=== PATIENT | female | born 1950 | race Caucasian/White ===

== ENCOUNTER 2019-12-24 01:27 | Outpatient (CLI) | payer MEDICARE, SELFPAY ==
[2019-12-24 20:05] LABS: SARS-CoV-2 RNA PCR Negative
== END 2019-12-24 01:28 | disposition home or self-care (01) ==
LOC: ANHCOVIDDT 01:28
PROVIDERS: PCP Internal Medicine; Visit Provider Internal Medicine Gastroenterology
DX: Z01.812 Encounter for preprocedural laboratory examination (principal); Z11.59 Encounter for screening for other viral diseases
CPT/HCPCS: 87635; C9803; U0003

== ENCOUNTER 2019-12-27 01:15 | Day surgery (SDC) | payer MEDICARE, SELFPAY ==
[2019-12-23 11:59] VITALS: BMI 22.8
[2019-12-27 09:26] VITALS: BP 154/52; PULSE 96; RESP 20; TEMP 37.5; O2SAT 98
--- NOTE | 2019-12-27 09:26 | WPDANESEPPF ---
Anes - Initial Pre Proc Eval Procedure: Operation Date: 12/27/19 10:30 Proposed Procedures p Esophagogastroduodenoscopy - Perry Haji MD Date/Time: 12/27/19 09:26 Surgeon: Perry Haji MD Pre Op Diagnosis: GI Bleed Patient Data Age: 69 Gender: F Height: 1.52 m Weight: 53 kg Allergies Allergy/AdvReac Type Severity Reaction Status Date / Time codeine Allergy Intermediate Unknown Verified 12/27/19 09:27 Sulfa (Sulfonamide Allergy Intermediate Rash Verified 12/27/19 09:27 Antibiotics) Home Medications Medication Instructions Recorded Confirmed Type alprazolam [Xanax] 0.25 mg PO TID PRN 12/23/19 12/23/19 History carvedilol 3.125 mg PO BID 12/23/19 12/23/19 History ferrous sulfate 325 mg PO BID 12/23/19 12/23/19 History pantoprazole 40 mg PO HS 12/23/19 12/23/19 History Patient hx anesthesia problems: none Family hx anesthesia problems: none [facility] Past Medical History Medical History (Updated 12/27/19 @ 09:28 by Corey Carrington MD) Anxiety Arthritis Gastroesophageal reflux disease HTN (hypertension) Anes - Eval Final PreProcedure Day of Procedure 12/27/19 09:26 Patient weight: normal Heart: regular rate and rhythm Lungs: clear to auscultation and normal air movement Airway: Mallampati scale class II Neurological: alert and oriented Last oral intake: >/= 8 hours ASA classification: II Emergent: no Anesthetic plan: proceed Anesthesia type and monitoring: general GIVS Informed Consent: The patient's anesthetic plan and its attendant risks and benefits were discussed with the patient/family/POA. Questions were solicited and answers provided to the satisfaction of the patient/family/POA.
--- NOTE | 2019-12-27 09:50 | WPDGICN ---
Assessment and Plan Assessment and plan (1) Anemia: Code(s): D64.9 - Anemia, unspecified Status: Acute Assessment and Plan: Anemia is noted on recent lab work. This is new from a normal blood count in the fall of 2019. There is some concern over possible GI bleeding. Patient has had required rather significant doses of nonsteroidal anti-inflammatory agents recently. No obvious bleeding site has been described. Plan is to evaluate with an EGD initially a colonoscopy subsequently if this is not fruitful. Agree with the empiric trial of Protonix. Limit use of nonsteroidals as much as possible until this is evaluated. Iron studies will be obtained as well as stool Hemoccult. (2) Arthritis: Code(s): M19.90 - Unspecified osteoarthritis, unspecified site Status: Acute Assessment and Plan: Patient has significant arthritis. She requests re- implementation of nonsteroidal anti-inflammatory agents if ulcer disease can be controlled (3) Anxiety: Code(s): F41.9 - Anxiety disorder, unspecified Status: Acute GI Consult Note Consult date/time: 12/27/19 09:50 HPI: Sally Morales is a 69 year old female seen in evaluation at the request of Dr Olaf Dolan. Patient has a long history of diagnosis of rheumatoid arthritis over the last few years. She has had increasing joint pain over the last several months. She has been treated with nonsteroidal anti-inflammatory agents. She was hospitalized at [facility] approximately a week ago was found to have rather significant anemia. Patient is reported to have had a normal hemoglobin in the fall of 2018. Recent hospitalization hemoglobin had declined to approximately 8.7. Patient denies any obvious signs of GI blood loss. She denies any recent stool samples to diagnose bleeding. She denies any other source of anemia or bleeding. She has had no nose bleeds. She has had no blood in her urine. She has had no excessive bruising. She denies abdominal pain. Her bowel habits are reported to be normal. They have not been black. There has been no obvious blood in her stools. Over the last 1-2 weeks. Nonsteroidal anti-inflammatory agents have been held. She has relied on Tylenol for pain medications. She was started on iron and Protonix. As well as Alprazolam. Patient presents today for EGD to exclude upper GI source of blood loss. And /or anemia. Review of Systems Review of Systems: All systems reviewed & are unremarkable except as noted in HPI and below PMFSH Past Medical History Medical History Anxiety Arthritis Gastroesophageal reflux disease HTN (hypertension) Meds Home Medications and Allergies Home Medications Medication Instructions Recorded Confirmed Type alprazolam [Xanax] 0.25 mg PO TID PRN 12/23/19 12/27/19 History carvedilol 3.125 mg PO BID 12/23/19 12/27/19 History ferrous sulfate 325 mg PO BID 12/23/19 12/23/19 History pantoprazole 40 mg PO HS 12/23/19 12/23/19 History Allergies Allergy/AdvReac Type Severity Reaction Status Date / Time codeine Allergy Intermediate Unknown Verified 12/27/19 09:27 Sulfa (Sulfonamide Allergy Intermediate Rash Verified 12/27/19 09:27 Antibiotics) Vital Signs Vital Signs - 24 hr 12/27/19 09:26 Temperature 99.5 F Pulse Rate 96 Respiratory Rate 20 Blood Pressure 154/52 H Pulse Oximetry 98 Exam Narrative: Exam Narrative: Physical exam reveals patient to be alert. Vital signs are stable. HEENT exam unremarkable. Lungs are clear to auscultation and percussion. Heart is without murmur or extra sounds. Abdominal exam bowel sounds are present soft nontender with no hepatosplenomegaly. Digital external rectal exam unremarkable no stools obtained for exam.
[2019-12-27] MEDS: LACTATED RINGERS 1,000 ML 150 ML IV CONT (09:52)
[2019-12-27] MEDS: KETOROLAC 15 MG/ML VIAL (*BKC) IV PUSH (10:05)
[2019-12-27] MEDS: BENZOCAINE (*SP) 60 ML SPRAY CAN (HURRICAINE) 1 SPRAY MUCOUS MEM (10:41)
[2019-12-27 10:49] VITALS: BP 114/90; PULSE 97; RESP 25; O2SAT 95
[2019-12-27 10:59] VITALS: BP 131/91; PULSE 88; RESP 24; O2SAT 100
[2019-12-27 11:09] VITALS: BP 145/57; PULSE 81; RESP 21; O2SAT 99
[2019-12-27 11:50] LABS: Iron 17 ug/dL (37-170)
[2019-12-27 12:02] LABS: Percent Iron Saturation 5 % (20-50)
== END 2019-12-27 11:48 | disposition home or self-care (01) ==
PROVIDERS: PCP Internal Medicine; Visit Provider Internal Medicine Gastroenterology
PROC: 0DJ08ZZ Inspection of Upper Intestinal Tract, Via Natural or Artificial Opening Endoscopic (ICD-10-PCS; CPT 43235; principal; 2019-12-27 10:30)
DX: D64.9 Anemia, unspecified (principal); K44.9 Diaphragmatic hernia without obstruction or gangrene; K21.9 Gastro-esophageal reflux disease without esophagitis; M19.90 Unspecified osteoarthritis, unspecified site; F41.9 Anxiety disorder, unspecified; M06.9 Rheumatoid arthritis, unspecified; I10 Essential (primary) hypertension
CPT/HCPCS: 43235; 36415; 82728; 83540; 83550; J1885; J2704; J7120

== ENCOUNTER 2020-01-07 02:32 | Outpatient (CLI) | payer MEDICARE, SELFPAY ==
[2020-01-07 18:57] LABS: SARS-CoV-2 RNA PCR Negative
== END 2020-01-07 02:33 | disposition home or self-care (01) ==
LOC: ANHCOVIDDT 02:32
PROVIDERS: PCP Internal Medicine; Visit Provider Internal Medicine Gastroenterology
DX: Z01.812 Encounter for preprocedural laboratory examination (principal); Z11.59 Encounter for screening for other viral diseases
CPT/HCPCS: 87635; C9803; U0003

== ENCOUNTER 2020-01-10 00:45 | Day surgery (SDC) | payer MEDICARE, SELFPAY ==
[2019-12-31 15:34] VITALS: BMI 22.8
[2020-01-10 09:00] VITALS: BP 188/81; PULSE 71; RESP 18; TEMP 36.4; O2SAT 100
--- NOTE | 2020-01-10 09:10 | WPDGICN ---
Assessment and Plan Assessment and plan (1) ASHVIN (iron deficiency anemia): Code(s): D50.9 - Iron deficiency anemia, unspecified Status: Acute Assessment and Plan: Because of iron deficiency anemia and occult blood in stool. Patient presents today for colonoscopy. Screening colonoscopy also advised because of her age. Plan is for high-fiber diet further recommendations will be given after endoscopy. (2) Occult blood in stools: Code(s): R19.5 - Other fecal abnormalities Status: Acute (3) Rheumatoid arthritis: Code(s): M06.9 - Rheumatoid arthritis, unspecified Status: Acute Assessment and Plan: Patient with severe joint aches have improved on starting therapy for rheumatoid arthritis. Plan is to follow up with Dr. haq is for continued care. (4) Anxiety: Code(s): F41.9 - Anxiety disorder, unspecified Status: Acute GI Consult Note Consult date/time: 01/10/20 09:10 HPI: Sally Morales is a 69 year old female Seen in evaluation at the request Dr. Olaf Dolan. Patient recently hospitalized with diffuse pain. Was found to have iron deficiency anemia. Recent EGD revealed a sliding hiatal hernia. She occurs iron studies have subsequently confirmed iron deficiency. Stool Hemoccult is positive. Patient presents today for screening colonoscopy. She denies any obvious blood in her stools. She was recently diagnosed with rheumatoid arthritis has significant improvement on starting steroid therapy. Patient's family history is noncontributory. Review of Systems Review of Systems: All systems reviewed & are unremarkable except as noted in HPI and below Meds Home Medications and Allergies Home Medications Medication Instructions Recorded Confirmed Type alprazolam [Xanax] 0.25 mg PO TID PRN 12/23/19 12/31/19 History carvedilol 3.125 mg PO BID 12/23/19 12/31/19 History ferrous sulfate 325 mg PO BID 12/23/19 12/31/19 History naproxen 500 mg PO BID 12/31/19 12/31/19 History prednisone 0 mg PO PER PKG DIR 01/10/20 01/10/20 History Allergies Allergy/AdvReac Type Severity Reaction Status Date / Time codeine Allergy Intermediate Unknown Verified 01/10/20 08:59 Sulfa (Sulfonamide Allergy Intermediate Rash Verified 01/10/20 08:59 Antibiotics) Vital Signs Vital Signs - 24 hr 01/10/20 09:00 Temperature 97.6 F Pulse Rate 71 Respiratory Rate 18 Blood Pressure 188/81 H Pulse Oximetry 100 Exam Narrative: Exam Narrative: Physical exam reveals patient to be alert. Vital signs stable. HEENT exam unremarkable. Lungs are clear to auscultation and percussion. Heart is without murmur or extra sounds. Abdominal exam bowel sounds are present soft nontender with no organomegaly. Digital external rectal exam normal.
[2020-01-10] MEDS: LACTATED RINGERS 1,000 ML 150 ML IV CONT (09:20)
--- NOTE | 2020-01-10 09:49 | WPDANESEPPF ---
Anes - Initial Pre Proc Eval Procedure: Operation Date: 01/10/20 10:00 Proposed Procedures p Colonoscopy - Perry Haji MD Date/Time: 01/10/20 09:49 Surgeon: Perry Haji MD Pre Op Diagnosis: iron deficiency anemia Patient Data Age: 69 Gender: F Height: 5 ft Weight: 52.8 kg Last Vital Signs Temp 97.6 F 01/10/20 09:00 Pulse 71 01/10/20 09:00 Resp 18 01/10/20 09:00 BP 188/81 H 01/10/20 09:00 Pulse Ox 100 01/10/20 09:00 Allergies Allergy/AdvReac Type Severity Reaction Status Date / Time codeine Allergy Intermediate Unknown Verified 01/10/20 08:59 Sulfa (Sulfonamide Allergy Intermediate Rash Verified 01/10/20 08:59 Antibiotics) Home Medications Medication Instructions Recorded Confirmed Type alprazolam [Xanax] 0.25 mg PO TID PRN 12/23/19 01/10/20 History carvedilol 3.125 mg PO BID 12/23/19 01/10/20 History ferrous sulfate 325 mg PO BID 12/23/19 01/10/20 History naproxen 500 mg PO BID 12/31/19 01/10/20 History prednisone 0 mg PO PER PKG DIR 01/10/20 01/10/20 History Patient hx anesthesia problems: none Family hx anesthesia problems: none Anes - Eval Final PreProcedure Day of Procedure 01/10/20 09:49 Patient weight: normal Heart: regular rate and rhythm Lungs: clear to auscultation Airway: Mallampati scale class II Neurological: alert and oriented Last oral intake: >/= 8 hours ASA classification: II Emergent: no Anesthetic plan: proceed Anesthesia type and monitoring: general GIVS and standard monitoring Informed Consent: The patient's anesthetic plan and its attendant risks and benefits were discussed with the patient/family/POA. Questions were solicited and answers provided to the satisfaction of the patient/family/POA.
[2020-01-10 10:52] VITALS: BP 155/71; PULSE 85; RESP 27; O2SAT 100
[2020-01-10 11:02] VITALS: BP 152/81; PULSE 79; RESP 24; O2SAT 100
[2020-01-10 11:14] VITALS: BP 174/79; PULSE 86; RESP 27; O2SAT 100
== END 2020-01-10 11:38 | disposition home or self-care (01) ==
PROVIDERS: PCP Internal Medicine; Visit Provider Internal Medicine Gastroenterology
PROC: 0DJD8ZZ Inspection of Lower Intestinal Tract, Via Natural or Artificial Opening Endoscopic (ICD-10-PCS; CPT 45378; principal; 2020-01-10 10:00)
DX: K92.1 Melena (principal); D50.9 Iron deficiency anemia, unspecified; K64.8 Other hemorrhoids; K57.30 Diverticulosis of large intestine without perforation or abscess without bleeding; M06.9 Rheumatoid arthritis, unspecified; F41.9 Anxiety disorder, unspecified
CPT/HCPCS: 45378; J2704; J7120

== ENCOUNTER 2023-04-18 17:26 | Inpatient (IN) | payer MEDICARE, SELFPAY ==
[2023-04-18] VITALS (29 sets, daily range): BP systolic 145–188; BP diastolic 61–109; PULSE 59–89; RESP 15–25; TEMP 36.8; O2SAT 94–100
--- NOTE | ~2023-04-18 | XR_ITS ---
EXAMINATION: XR chest 2V DATE: 04/18/2023 18:10 INDICATION: Chest pain radiating to the upper back TECHNIQUE: PA and lateral views of the chest were obtained. COMPARISON: None FINDINGS: The lungs are clear with no focal airspace opacities, pulmonary edema, pleural effusion or pneumothor ax. The cardiomediastinal silhouette is normal. Mildly tortuous and atherosclerotic thoracic aorta. M ild thoracic kyphosis with moderate spondylosis. IMPRESSION: 1. No acute cardiopulmonary disease. Reviewed, dictated and finalized at location A. OLOGIST PHYSICIAN
--- NOTE | 2023-04-18 17:35 | ECG_ITS ---
Measurements Intervals [place] Rate: 75 P: 70 NE: 133 QRS: 44 QRSD: 83 T: 62 QT: 340 QTc: 380 Interpretive Statements SINUS RHYTHM VOLTAGE CRITERIA FOR LVH ANTEROSEPTAL INFARCT, AGE INDETERMINATE BORDERLINE ST ABNORMALITY- INF/LAT LEADS BASELINE ARTIFACT- I, AVR, AVL ABNORMAL ECG NO PREVIOUS ECG AVAILABLE FOR COMPARISON Electronically Signed On 04-18-2023 21:39:31 MACHINIST WOOD by Steven Coats D.O.
[2023-04-18 18:08] LABS: Basophils Absolute Auto 0.1 K/mm3 (0.0-0.1); Basophils Percent Auto 0.9 % (0.2-1.2); Eosinophils Absolute Auto 0.3 K/mm3 (0-0.3); Eosinophils Percent Auto 3.6 % (0-4.4); Hemoglobin 12.2 g/dL (12.0-15.0); Immature Granulocyte Absolute 0.02 K/mm3 (0.00-0.031); Immature Granulocyte Percent A 0.3 % (0-0.5); Lymphocytes Absolute Auto 1.96 K/mm3 (0.9-3.2); Lymphocytes Percent Auto 28.1 % (18.3-44.2); Mean Corpuscular HGB Conc 31.3 g/dl (32-36); Mean Corpuscular Hemoglobin 28.4 pg (26-34); Mean Corpuscular Volume 90.9 fl (80-100); Mean Platelet Volume 9.8 fl (7.4-10.4); Monocytes Absolute Auto 0.6 K/mm3 (0.1-0.6); Monocytes Percent Auto 8.6 % (2.6-8.5); Neutrophils Absolute Auto 4.1 K/mm3 (1.3-6.7); Neutrophils Percent Auto 58.5 % (45.5-73.1); Platelet Count Result 363 k/mm3 (150-375); Red Blood Count 4.29 M/mm3 (4.2-5.4); Red Cell Distribution Width 13.3 % (11.5-14.5)
[2023-04-18 18:18] LABS: INR 0.9; Prothrombin Time 12.8 Seconds (11.1-14.7)
[2023-04-18 18:27] LABS: Alanine Aminotransferase 22 U/L (6-35); Albumin Level 4.5 g/dL (3.5-5.1); Alkaline Phosphatase 75 U/L (38-126); Anion Gap 9 mmol/L (8-16); Aspartate Amino Transferase 31 U/L (14-36); Bilirubin,Total 0.5 mg/dL (0.2-1.3); Blood Urea Nitrogen 22 mg/dL (7-17); Calcium 9.9 mg/dL (8.4-10.2); Carbon Dioxide 27 mmol/L (22-30); Chloride 101 mmol/L (98-107); Estimated CRCL calculation 39 ml/min; Estimated Glomerular Filt Rate > 60; Glucose 111 mg/dL (65-110); Lipase 192 U/L (23-300); Potassium 4.3 mmol/L (3.4-5.0); Sodium 137 mmol/L (137-145)
[2023-04-18 18:48] LABS: Troponin I 0.054 ng/mL (0.000-0.034)
[2023-04-18] MEDS: ASPIRIN 81 MG CHEWABLE TABLET 324 MG PO (19:25)
--- NOTE | 2023-04-18 20:56 | ED.CHESTPAIN ---
HPI - Chest Pain General Chief Complaint: Chest Pain Stated Complaint: chest pain Time Seen by Provider: 04/18/23 20:55 Source: patient and family Mode of arrival: ambulatory History of Present Illness HPI narrative: 72 years old white female presents to the ED with intermittent chest pain for last 3 weeks, gotten more frequent over the last 7 days and worse last night. Associated with shortness of breath, and radiation to upper extremities bilaterally. History of hypertension, hyperlipidemia, TIA, on baby aspirin every other day. Father had history of coronary artery disease. Over the last 7 days pain can come with exertion, resolved at rest. Consult the patient chest pain is 0/10 compared to 9/10 last night Related Data Home Medications Medication Instructions Recorded Confirmed aspirin 81 mg tablet,delayed 81 mg PO DAILY 02/21/23 04/16/23 release (Adult Low Dose Aspirin) Allergies Allergy/AdvReac Type Severity Reaction Status Date / Time codeine Allergy Intermediate Unknown Verified 04/18/23 17:38 Sulfa (Sulfonamide Allergy Intermediate Rash Verified 04/18/23 17:38 Antibiotics) celecoxib [From Celebrex] AdvReac Mild Unknown Verified 04/18/23 17:38 ibuprofen AdvReac Mild Unknown Verified 04/18/23 17:38 pseudoephedrine AdvReac Mild Unknown Verified 04/18/23 17:38 [From Sudafed] Review of Systems Review of Systems: All systems reviewed & are unremarkable except as noted in HPI and below PMFSH Past Medical History Medical History Anxiety Arthritis Gastroesophageal reflux disease Headache HTN (hypertension) Vision problems Surgical History Surgical History History of hysterectomy (~1978) Family History Family History Father Heart disease Mother Hypertension Grandparent Heart disease Grandparent Hypertension Cerebrovascular accident Social History Social History Smoking status: Former smoker Alcohol use details: very rarely Substance use: never Substance use type: does not use Living arrangements: alone Occupation/Education: retired Agree to blood products: Yes Exam Narrative: General appearance: Well-developed, well-nourished, anxious Skin: Normal color Head: Normocephalic, nontraumatic Eyes: Clear conjunctiva ENT: Oropharynx normal, ears normal, nose normal Neck: Supple, nontender Chest and respiratory: Airway patent, no respiratory distress, no accessory muscle use Heart: Regular rate/rhythm Abdomen: Soft, nontender, no organomegaly, quiet bowel sounds Vascular: Normal peripheral pulses, normal capillary refill. Musculoskeletal: Normal range of motion, nontender back Neurologic: Alert and oriented ?3, RECYCLING TECHNICIAN is normal as tested, no gross motor deficit Course Consultations Consultation #1: Heparin drip Date: 04/18/23 Time: 21:36 Vital Signs Vital signs: Vital Signs Temperature 36.8 C 04/18/23 17:29 Pulse Rate 82 04/18/23 17:29 Respiratory Rate 18 04/18/23 17:29 Blood Pressure 145/73 H 04/18/23 17:29 Pulse Oximetry 99 04/18/23 17:29 Oxygen Delivery Room Air 04/18/23 17:29 Temperature 36.8 C 04/18/23 17:29 Pulse Rate 82 04/18/23 17:29 Respiratory Rate 18 04/18/23 17:29 Blood Pressure 145/73 H 04/18/23 17:29 Pulse Oximetry 99 04/18/23 17:29 Oxygen Delivery Room Air 04/18/23 17:29 MDM - Chest Pain MDM Narrative Medical decision making narrative: Patient presents with progressive chest pain over the
--- NOTE | 2023-04-18 21:17 | PM.IMHP ---
H&P: HPI History of Present Illness Date/Time: 04/18/23 21:17 Chief Complaint: Chest pain Narrative: 72-year-old female with past medical history significant for tobacco dependence, RA, hypertension, care. Patient presents to the emergency room due to chest pain localized to the precordial area with radiation to neck and bilateral shoulder rates the pain at 7/10 in intensity denies any nausea vomiting palpitations lightheadedness dizziness syncope or near syncope no cough no sputum production no leg swelling. Preliminary workup was significant for elevated troponin. Patient has been placed on heparin drip. Admitted to in IMU. EXAMINATION: XR chest 2V DATE: 04/18/2023 18:10 INDICATION: Chest pain radiating to the upper back TECHNIQUE: PA and lateral views of the chest were obtained. COMPARISON: None FINDINGS: The lungs are clear with no focal airspace opacities, pulmonary edema, pleural effusion or pneumothorax. The cardiomediastinal silhouette is normal. Mildly tortuous and atherosclerotic thoracic aorta. Mild thoracic kyphosis with moderate spondylosis. IMPRESSION: 1. No acute cardiopulmonary disease. EXAMINATION: XR chest 2V DATE: 04/18/2023 18:10 INDICATION: Chest pain radiating to the upper back TECHNIQUE: PA and lateral views of the chest were obtained. COMPARISON: None FINDINGS: The lungs are clear with no focal airspace opacities, pulmonary edema, pleural effusion or pneumothorax. The cardiomediastinal silhouette is normal. Mildly tortuous and atherosclerotic thoracic aorta. Mild thoracic kyphosis with moderate spondylosis. IMPRESSION: 1. No acute cardiopulmonary disease. Review of Systems Review of Systems: Chest pain Constitutional: Constitutional: Denies chills, Denies fatigue, Denies fever(s), Denies malaise, Denies poor appetite and Denies weakness Eyes: Eyes: Denies change in vision ENT: Denies dysphagia and Denies odynophagia Cardiovascular: Cardiovascular: Reports chest pain, Reports chest pain at rest, Denies leg edema, Reports lightheadedness, Reports radiating jaw, neck or arm pain and Denies palpitations Respiratory: Respiratory: Reports cough, Denies excessive phlegm production, Denies dyspnea and Denies wheezing Gastrointestinal: Gastrointestinal: Denies abdominal pain, Denies dyspepsia, Denies heartburn, Denies diarrhea, Denies nausea and Denies vomiting Genitourinary: Genitourinary: Denies dysuria Musculoskeletal: Musculoskeletal: Denies arthralgias and Denies joint swelling Integumentary/Breasts: Skin/Breast: Denies rash Neurologic: Denies vertigo, Denies dizziness, Denies focal weakness and Denies Sensory deficit (Neuro) Psychiatric: Psychiatric: Reports no additional psychiatric complaints and Reports as per HPI Endocrine: Endocrine: Denies cold intolerance, Denies fatigue, Denies flushing, Denies heat intolerance, Denies polyphagia, Denies polydipsia and Denies palpitations Hematologic/Lymphatic: Hematologic/Lymphatic: Reports no additional hematologic/lymphatic complaints and Reports as per HPI Allergic/Immunologic: Allergic/Immunologic: Reports no additional allergic/immunologic complaints and Reports as per HPI PMFSH Past Medical History Medical History Anxiety Arthritis Gastroesophageal reflux disease Headache HTN (hypertension) Vision problems Surgical History Surgical History History of hysterectomy (~1978) Family History Family History (Updated 04/19/23 @ 01:23 by Cecilia Chi RN) Father Heart disease Mother Hypertension Grandparent Heart disease Chronic obstructive pulmonary disease Grandparent Hypertension Cerebrovascular accident Social History Social History Smoking status: Never smoker Second hand tobacco smoke exposure: No Alcohol intake: never Alcohol u
[2023-04-18] MEDS: NITROGLYCERIN OINTMENT 1 INCH DOSE TRANSDERM (21:25)
[2023-04-18] MEDS: LORazepam INJ (*CRX) 2 MG/ML VIAL 1 MG IV PUSH (21:25)
[2023-04-18] MEDS: METOPROLOL TARTRATE INJ 5 MG/5 ML VIAL IV PUSH (21:25)
[2023-04-18 21:37] LABS: Troponin I 0.051 ng/mL (0.000-0.034)
[2023-04-18] MEDS: HEPARIN SOD/D5W 100 UNITS/ML 25,000 UNITS/250 ML BAG 6 UNITS IV CONT (22:03)
--- NOTE | 2023-04-18 23:29 | PC.NURSE ---
Assumed care of pt. Report from EFE Betancourt. Per Asia, pt was given first dose of metoprolol and HR dropped to 59. She states she was told by Dr Wren that if HR dropped below 60 to not give any more metoprolol. Asia reports other two doses not given. These marked as not given upon this RN assuming care to keep from any additional continuity of care confusion.
[2023-04-18 23:38] LABS: Basophils Absolute Auto 0.1 K/mm3 (0.0-0.1); Basophils Percent Auto 0.9 % (0.2-1.2); Eosinophils Absolute Auto 0.4 K/mm3 (0-0.3); Eosinophils Percent Auto 5.1 % (0-4.4); Hematocrit 35.8 % (37.0-47.0); Hemoglobin 11.4 g/dL (12.0-15.0); Immature Granulocyte Absolute 0.02 K/mm3 (0.00-0.031); Immature Granulocyte Percent A 0.2 % (0-0.5); Lymphocytes Absolute Auto 2.41 K/mm3 (0.9-3.2); Lymphocytes Percent Auto 29.4 % (18.3-44.2); Mean Corpuscular HGB Conc 31.8 g/dl (32-36); Mean Corpuscular Hemoglobin 28.5 pg (26-34); Mean Corpuscular Volume 89.5 fl (80-100); Mean Platelet Volume 9.7 fl (7.4-10.4); Monocytes Absolute Auto 0.8 K/mm3 (0.1-0.6); Monocytes Percent Auto 9.8 % (2.6-8.5); Neutrophils Absolute Auto 4.5 K/mm3 (1.3-6.7); Neutrophils Percent Auto 54.6 % (45.5-73.1); Platelet Count Result 344 k/mm3 (150-375); Red Cell Distribution Width 13.3 % (11.5-14.5); White Blood Count 8.2 K/mm3 (4.5-10.0)
[2023-04-19] VITALS (16 sets, daily range): BP systolic 108–152; BP diastolic 47–67; PULSE 64–116; RESP 16–24; TEMP 36.2–36.7; O2SAT 94–98; BMI 21.4
--- NOTE | 2023-04-19 00:33 | PC.NURSE ---
Report to EFE Brooks
--- NOTE | 2023-04-19 01:06 | ADMGEN ---
This patient, Sally Morales, was admitted to IMU Room 214-01@ 0103 Patient/family oriented to hospital policies and general routines including ID bracelet, bed and alarms, visiting hours, pain management, procedures, bathroom and other care routines, personal items, smoking policy, room service/diet, and visiting hours. Information on how to activate the Rapid Response Team has been discussed. Patient/Family are encouraged to report perceived risks to care and to ask questions if they do not understand what they are told or what they should do.
[2023-04-19 03:54] LABS: Basophils Absolute Auto 0.1 K/mm3 (0.0-0.1); Basophils Percent Auto 0.9 % (0.2-1.2); Eosinophils Absolute Auto 0.4 K/mm3 (0-0.3); Eosinophils Percent Auto 6.9 % (0-4.4); Hemoglobin 11.5 g/dL (12.0-15.0); Immature Granulocyte Absolute 0.02 K/mm3 (0.00-0.031); Immature Granulocyte Percent A 0.3 % (0-0.5); Lymphocytes Absolute Auto 1.75 K/mm3 (0.9-3.2); Lymphocytes Percent Auto 27.3 % (18.3-44.2); Mean Corpuscular HGB Conc 31.1 g/dl (32-36); Mean Corpuscular Hemoglobin 28.2 pg (26-34); Mean Corpuscular Volume 90.7 fl (80-100); Mean Platelet Volume 9.8 fl (7.4-10.4); Monocytes Absolute Auto 0.6 K/mm3 (0.1-0.6); Neutrophils Absolute Auto 3.5 K/mm3 (1.3-6.7); Neutrophils Percent Auto 54.6 % (45.5-73.1); Platelet Count Result 334 k/mm3 (150-375); Red Blood Count 4.08 M/mm3 (4.2-5.4); Red Cell Distribution Width 13.3 % (11.5-14.5); White Blood Count 6.4 K/mm3 (4.5-10.0)
[2023-04-19 04:13] LABS: Partial Thromboplastin Time 52.7 SECONDS (22.3-36.8)
[2023-04-19] MEDS: HEPARIN SODIUM 5,000 UNITS/ML VIAL 4000 UNITS IV PUSH ×2 (04:56→20:53)
--- NOTE | 2023-04-19 08:32 | ECHO_ITS ---
Patient Info Name: Sally Morales Age: 72 years : 1950 Gender: Female Ht: 60 in Wt: 109 lbs BSA: 1.45 m2 HR: 78 bpm BP: 143 / 63 mmHg Heart Rhythm: Sinus Rhythm Technical Quality: Fair Exam Date: 04/19/2023 10:04 AM Exam Location: Echo Lab Exam Room: 214 Patient Status: Inpatient Admit Date: 04/19/2023 Staff Ordering Physician: Marly Bernal MD Welding Inspector: Mirna Lackey RDCS Attending Provider: Elisa Gonzalez MD Referring Physician: Dolores ALVARADO; Exam Type: CA echo doppler color flow Study Info Indications - elevated troponins - chest pain Complete two-dimensional, color flow and Doppler transthoracic echocardiogram is performed. Summary 1. Complete two-dimensional, color flow and Doppler transthoracic echocardiogram is performed. 2. Normal left ventricular size and thickness with overall hyperdynamic contractility, ejection fraction greater than 70%. Area of mild hypokinesis of the basal inferoseptal segment. Grade 2 diastolic dysfunction is present. Global longitudinal strain is normal at -22%. 3. Left atrial chamber dimension is mildly enlarged. 4. Mild pulmonary hypertension, estimated pulmonary arterial systolic pressure is 37 mmHg. 5. No significant valve disease. 6. Normal sinus rhythm. Left Ventricle Left ventricular chamber dimension is normal. Left ventricular systolic function is hyperdynamic, estimated at >70%. There is no increased left ventricular wall thickness. Left ventricular septal wall motion is normal. The left ventricular diastolic function is grade II diastolic dysfunction. Global longitudinal strain is normal at -22 %. Right Ventricle Right ventricular chamber dimension is normal. Right ventricular systolic function is normal. Left Atria Left atrial chamber dimension is mildly enlarged. Right Atria Right atrial chamber dimension is normal. Aortic Valve The aortic valve is trileaflet. There is no aortic valve sclerosis. There is no aortic valve stenosis. There is no aortic valve regurgitation. Pulmonic Valve The pulmonic valve is normal. There is no pulmonic valve stenosis. There is no pulmonic regurgitation. Mitral Valve The mitral valve has normal leaflets. There is no mitral valve stenosis. There is no mitral valve regurgitation. Tricuspid Valve The tricuspid valve leaflets are normal. There is no significant tricuspid valve stenosis. There is trace tricuspid valve regurgitation. Mild pulmonary hypertension, estimated pulmonary arterial systolic pressure is 37 mmHg. Pericardium/Pleural The pericardium appears normal. There is no pericardial effusion. Inferior Vena Cava Normal inferior vena cava with >50% collapse upon inspiration consistent with Empty right atrial pressure, 10 mmHg. Aorta The aortic root size at the sinus of Valsalva is normal. The prox ascending aorta size is normal. Left Ventricular Outflow Tract Name Value Normal LVOT 2D LVOT Diameter 2.0 cm LVOT Doppler LVOT Peak Gradient 6 mmHg LVOT Mean Gradient 3 mmHg LVOT VTI 25 cm LVOT VTI/AV VTI Ratio 0.8
--- NOTE | 2023-04-19 08:33 | ECG_ITS ---
Measurements Intervals [place] Rate: 84 P: 61 IA: 124 QRS: -6 QRSD: 81 T: 37 QT: 346 QTc: 410 Interpretive Statements SINUS RHYTHM ANTEROSEPTAL INFARCT, AGE INDETERMINATE BORDERLINE ST ABNORMALITY- LATERAL LEADS BASELINE ARTIFACT- I, III, AVL, V3 ABNORMAL ECG COMPARED TO ECG 04/18/2023 17:44:10 NO SIGNIFICANT CHANGES Electronically Signed On 04-19-2023 16:20:55 SYSTEM DEVELOPMENT MANAGER by Steven Coats D.O.
[2023-04-19] MEDS: ASPIRIN 81 MG CHEWABLE TABLET PO (08:37)
--- NOTE | 2023-04-19 10:57 | PM.CNCAR ---
Assessment and Plan Assessment and plan (1) Acute non-ST elevation myocardial infarction (NSTEMI): Code(s): I21.4 - Non-ST elevation (NSTEMI) myocardial infarction Status: Acute Assessment and Plan: Patient presents with 3 weeks of chest pain, elevated troponins and inferolateral ST segment changes which have resolved. The troponins are flat which is a bit unusual but the overall picture is consistent with a non-STEMI/acute coronary syndrome. --counseled patient and family extensively about this diagnosis, etiology, evaluation, treatment. --continue heparin, aspirin --will try adding rosuvastatin 20 mg daily to see if she can tolerate this --Pt is concerned that her problems started while she was taking her atorvastatin; explained that there are many factors that contribute and several things to improve outcome. --add [id number] mg BID --SL TNG --Echo --heart healthy diet --anxiety reduction --cardiac catheterization on Friday. I reviewed the procedure with the patient. She is upset as a friend of hers ? on the table? during a cardiac procedure. Reassured that this was a rare event. May be related to the pre-existing illness rather than the procedure. Explained the possibility of stent implant and the need for dual anti-platelet therapy for 1 year afterwards. Patient desires to proceed. (2) HTN (hypertension): Code(s): I10 - Essential (primary) hypertension Status: Acute Assessment and Plan: Mildy elevated --metoprolol (3) Hyperlipidemia: Code(s): E78.5 - Hyperlipidemia, unspecified Status: Acute Assessment and Plan: Has been off atorvastatin for about a week with lipids as above. --try rosuvastatin 20 mg daily (4) Statin intolerance: Code(s): Z78.9 - Other specified health status Status: Acute Assessment and Plan: Had myalgias with atorvastatin 40 mg daily. Reviewed importance of cholesterol reduction, preference for statin therapy, will try a different medication at a different dose. (5) Atherosclerosis of left carotid artery: Code(s): I65.22 - Occlusion and stenosis of left carotid artery Status: Acute Assessment and Plan: Nearly 50% stenosis of left carotid artery diagnosed in December 2022. Thus she has established atherosclerotic disease. (6) TIA (transient ischemic attack): Code(s): G45.9 - Transient cerebral ischemic attack, unspecified Status: Acute Assessment and Plan: History of TIA versus ocular migraine. (7) Rheumatoid arthritis: Code(s): M06.9 - Rheumatoid arthritis, unspecified Status: Acute Assessment and Plan: A risk factor for CAD (8) Anxiety: Code(s): F41.9 - Anxiety disorder, unspecified Status: Acute Assessment and Plan: Encourage follow-up with PMD. (9) Medication adverse effect: Code(s): T50.905A - Adverse effect of unspecified drugs, medicaments and biological substances, initial encounter Status: Acute Assessment and Plan: Patient is adverse to taking medications and has side effects to medications also. Will require further counseling about the importance of medication compliance. History of Present Illness History of Present Illness Consult date/time: 04/19/23 10:57 Reason For Visit: chest pain Narrative: Sally Morales is a 72-year-old female whom I was asked to see at the request of Dr. Wern for my advice and opinion regarding her chest discomfort in consultation. She has a history of a TIA (vs occular migraine, diagnosed 12/2022), hypertension, hyperlipidemia. Ms. Morales has had intermittent discomfort across her chest and shoulders for the last 3 weeks, worse w/ anxiety, but to some degree always present. She also notes she had a bad gall bladder attach 3 weeks ago w/ discomfort in the RUQ radiating posteriorly. She was told the shoulder discomfort may be related to her rheumatoid arthritis
[2023-04-19 12:57] LABS: Partial Thromboplastin Time > 200.0 SECONDS (22.3-36.8)
[2023-04-19] MEDS: METOPROLOL TARTRATE 12.5 MG TABLET PO ×2 (13:58→19:52)
[2023-04-19] MEDS: LORazepam (*CRX) 0.5 MG TABLET PO (13:58)
--- NOTE | 2023-04-19 14:52 | PM.IMPN ---
Progress Note: A&P Assessment and Plan (1) Hyperlipidemia: Code(s): E78.5 - Hyperlipidemia, unspecified Status: Acute (2) TIA (transient ischemic attack): Code(s): G45.9 - Transient cerebral ischemic attack, unspecified Status: Acute (3) Acute non-ST elevation myocardial infarction (NSTEMI): Code(s): I21.4 - Non-ST elevation (NSTEMI) myocardial infarction Status: Acute (4) Rheumatoid arthritis: Code(s): M06.9 - Rheumatoid arthritis, unspecified Status: Acute Plan 72F w/ PMH anxiety, GERD, atherosclerosis of left carotid artery, RA, HTN, HLD, statin intolerance, TIA presented with chest pain for 3 weeks which was worse with anxiety. Admitted on 04/18 for NSTEMI 1) NSTEMI - cardiology consulted. she is currently chest pain free and trops are flat. She would benefit from angiogram and PCI on friday and has so far agreed with Dr. Bernal. However, the patient remains anxious, i rediscussed risks vs benefits with her and offered my empathy to her anxiety. - for now, we will continue with plan for PCI unless anything changes. mgmt per cardiology including heparin GTT, tele monitor, statin, metoprolol, SL NG, @d echo, heart healthy diet, aspirin 2) HLD - previously intolerant to atorvastatin 2/2 myalgia. trying rosuvastatin 3) hx HTN - ctm, adjust meds based on other problems 4) dry cough - for weeks now, CXR w/o acute abnormalities. check viral swab. she likely has COPD as well based on the CXR and prior smoking history. needs outpatient pulm f/u 5) anxiety - she does not want to take SSRI. she did not do well with 0.5 mg ativan but reports at a past date she took smallest dose 0.25mg so we will switch to that. I provided some counseling and offered empathy to her trauma of having a friend on the cath table in the past. this seemed to calm her some. she needs more f/u with PCP and/or psychiatry FEN: saline lock IV, cardiac diet GI prophylaxis: none indicated DVT prophylaxis: heparin GTT Lines: PIV Code Status: Full Code Dispo: stable. pending cath on friday More than 35 minutes spent on chart review, patient interaction and assessment and plan. Subjective Date/time seen: 04/19/23 14:52 Interval history: NAOE. she complains of anxiety, feels like most people have not understood her anxiety as well. she denies chest pain, shortness of breath, but has had a dry cough from a week before she presented Review of Systems Review of Systems: All systems reviewed & are unremarkable except as noted in HPI and below Exam Const: General: comfortable and no acute distress Other: slightly anxious, teary eyed at times Eyes: Pupils: Equal, round and reactive pupils present Neck: Neck: supple Resp: Effort & Inspection: normal respiratory effort Auscultation: diminished lung sounds Cardio: Rate: regular rate Rhythm: regular rhythm Heart sounds: no gallops, no murmurs and no rubs GI: GI Palp: Yes Soft to palpation and No Tenderness to palpation present (GI) Extrem: General: no edema Objective Data Vital Signs Vital Signs: Vital Signs - 24 hr 04/18/23 17:29 04/18/23 21:25 04/18/23 22:05 Temperature 98.2 F Pulse Rate 82 82 69 Respiratory Rate 18 22 H Blood Pressure 145/73 H 152/87 H Pulse Oximetry 99 96 Oxygen Delivery Room Air 04/18/23 20:01 04/18/23 20:02 04/18/23 20:15 Temperature Pulse Rate 72 74 81 Respiratory Rate 19 18 20 Blood Pressure 153/61 H Pulse Oximetry 97 98 99 Oxygen Delivery 04/18/23 20:16 04/18/23 20:30 04/18/23 20:32 Temperature Pulse Rate 89 85 87 Respiratory Rate 18 15 25 H Blood Pressure 147/109 H 183/74 H Pulse Oximetry 100 100 100 Oxygen Delivery 04/18/23 20:45 04/18/23 20:46 04/18/23 21:00 Temperature Pulse Rate 73 84 83 Respiratory Rate 17 17 21 H Blood Pressure 171/81 H Pulse Oximetry 99 100 99 Oxygen Delivery 04/18/23 21:01 04/18/23 21:15 04/18/23 21:16 Temperature
[2023-04-19 19:25] LABS: Influenza A QL RT-PCR Negative (Negative); Influenza B QL RT-PCR Negative (Negative); RSV RNA, RT-PCR Negative (Negative); SARS-CoV-2 RNA PCR Negative (Negative)
[2023-04-19] MEDS: LORazepam (*CRX) 0.5 MG TABLET 0.25 MG PO (19:52)
[2023-04-19 20:35] LABS: Partial Thromboplastin Time 45.3 SECONDS (22.3-36.8)
[2023-04-20] VITALS (15 sets, daily range): BP systolic 100–149; BP diastolic 48–65; PULSE 64–95; RESP 12–20; TEMP 36.2–36.5; O2SAT 94–100
[2023-04-20 02:32] LABS: Basophils Absolute Auto 0.1 K/mm3 (0.0-0.1); Basophils Percent Auto 0.9 % (0.2-1.2); Eosinophils Absolute Auto 0.6 K/mm3 (0-0.3); Eosinophils Percent Auto 6.8 % (0-4.4); Hemoglobin 11.6 g/dL (12.0-15.0); Immature Granulocyte Absolute 0.02 K/mm3 (0.00-0.031); Immature Granulocyte Percent A 0.2 % (0-0.5); Lymphocytes Absolute Auto 2.68 K/mm3 (0.9-3.2); Mean Corpuscular HGB Conc 31.4 g/dl (32-36); Mean Corpuscular Hemoglobin 28.4 pg (26-34); Mean Corpuscular Volume 90.7 fl (80-100); Mean Platelet Volume 9.4 fl (7.4-10.4); Monocytes Absolute Auto 0.7 K/mm3 (0.1-0.6); Monocytes Percent Auto 8.7 % (2.6-8.5); Neutrophils Absolute Auto 4.1 K/mm3 (1.3-6.7); Neutrophils Percent Auto 50.4 % (45.5-73.1); Platelet Count Result 343 k/mm3 (150-375); Red Blood Count 4.08 M/mm3 (4.2-5.4); Red Cell Distribution Width 13.3 % (11.5-14.5); White Blood Count 8.1 K/mm3 (4.5-10.0)
[2023-04-20 02:43] LABS: Anion Gap 6 mmol/L (8-16); Blood Urea Nitrogen 19 mg/dL (7-17); Carbon Dioxide 27 mmol/L (22-30); Chloride 104 mmol/L (98-107); Estimated CRCL calculation 39 ml/min; Estimated Glomerular Filt Rate > 60; Glucose 103 mg/dL (65-110); Sodium 137 mmol/L (137-145)
[2023-04-20 03:28] LABS: Partial Thromboplastin Time > 200.0 SECONDS (22.3-36.8)
[2023-04-20] MEDS: METOPROLOL TARTRATE 12.5 MG TABLET PO (08:16)
[2023-04-20] MEDS: LORazepam (*CRX) 0.5 MG TABLET 0.25 MG PO (08:16)
[2023-04-20] MEDS: ASPIRIN 81 MG CHEWABLE TABLET PO (08:16)
[2023-04-20] MEDS: ROSUVASTATIN 20 MG TABLET PO (08:16)
[2023-04-20] MEDS: HEPARIN SOD/D5W 100 UNITS/ML 25,000 UNITS/250 ML BAG 6 UNITS IV CONT (08:17)
[2023-04-20 10:53] LABS: Partial Thromboplastin Time 81.5 SECONDS (22.3-36.8)
--- NOTE | 2023-04-20 12:28 | PM.PNCARD ---
Progress Note: A&P Assessment and Plan (1) Acute non-ST elevation myocardial infarction (NSTEMI): Code(s): I21.4 - Non-ST elevation (NSTEMI) myocardial infarction Status: Acute Assessment and Plan: Patient presents with 3 weeks of excalating chest pain, elevated troponins, inferolateral EKG changes and inferior wall motion abnormality consistent with a non-STEMI/acute coronary syndrome. --counseled patient and family extensively about this diagnosis, etiology, evaluation, treatment. --continue heparin, aspirin, added metoprolol but will increase dose --added rosuvastatin 20 mg daily to see if she can tolerate this --anxiety reduction --cardiac catheterization on Friday. I reviewed the procedure with the patient. She is upset as a friend of hers ? on the table? during a cardiac procedure. Reassured that this was a rare event. Explained the possibility of stent implant and the need for dual anti-platelet therapy for 1 year afterwards. Patient desires to proceed. Has a lot of questions that I can't answer, wants assurance that we can do a PCI and she won't need CABG, etc. Counseled pt that we need to know her anatomy then can give her advice re: optimal tx. (2) HTN (hypertension): Code(s): I10 - Essential (primary) hypertension Status: Acute Assessment and Plan: Mildy elevated --metoprolol (3) Hyperlipidemia: Code(s): E78.5 - Hyperlipidemia, unspecified Status: Acute Assessment and Plan: Has been off atorvastatin for about a week with lipids as above. --try rosuvastatin 20 mg daily (4) Statin intolerance: Code(s): Z78.9 - Other specified health status Status: Acute Assessment and Plan: Had myalgias with atorvastatin 40 mg daily. Reviewed importance of cholesterol reduction, preference for statin therapy, will try a different medication at a different dose. (5) Atherosclerosis of left carotid artery: Code(s): I65.22 - Occlusion and stenosis of left carotid artery Status: Acute Assessment and Plan: Nearly 50% stenosis of left carotid artery diagnosed in December 2022. Thus she has established atherosclerotic disease. (6) TIA (transient ischemic attack): Code(s): G45.9 - Transient cerebral ischemic attack, unspecified Status: Acute Assessment and Plan: History of TIA versus ocular migraine. (7) Rheumatoid arthritis: Code(s): M06.9 - Rheumatoid arthritis, unspecified Status: Acute Assessment and Plan: A risk factor for CAD (8) Anxiety: Code(s): F41.9 - Anxiety disorder, unspecified Status: Acute Assessment and Plan: Encourage follow-up with PMD. (9) Medication adverse effect: Code(s): T50.905A - Adverse effect of unspecified drugs, medicaments and biological substances, initial encounter Status: Acute Assessment and Plan: Patient is adverse to taking medications and has side effects to medications also. Will require further counseling about the importance of medication compliance. Subjective Date/time seen: 04/20/23 12:28 Interval history: Follow-up for non-STEMI. Admitted 04/19/2023. History of some statin intolerance, TIA in December 2022, hyperlipidemia, hypertension, rheumatoid arthritis, former tobacco use, anxiety. 04/19/2023 started heparin, aspirin, rosuvastatin, metoprolol. Date of service 04/20/2023: Family at bedside. Had some chest discomfort when up to BR tangled in IV lines (resolved after getting back to bed, unhappy w/ q 6H PTT, extremely anxious re: her cardiac condition and tmr's procedure, unhappy that it likely won't be done until afternoon. Remains on room air, heart rate 80-90s, blood pressure systolic 120-150 mmHg. Echo showed overall good EF but inferior hypokinesis. Review of Systems Review of Systems: CP as above, no ANDERSEN or dizziiness, no edema. Anxious. Exam Narrative: Anxious family at
[2023-04-20 17:49] LABS: Partial Thromboplastin Time 48.1 SECONDS (22.3-36.8)
[2023-04-20] MEDS: HEPARIN SODIUM 5,000 UNITS/ML VIAL 4000 UNITS IV PUSH (18:21)
--- NOTE | 2023-04-20 19:21 | PM.IMPN ---
Progress Note: A&P Assessment and Plan (1) Acute non-ST elevation myocardial infarction (NSTEMI): Code(s): I21.4 - Non-ST elevation (NSTEMI) myocardial infarction Status: Acute Plan The patient has anxiety still. She is amenable to heart catheterization. cont heparin gtt, NPO at midnight. full code. Subjective Date/time seen: 04/20/23 19:21 Interval history: Pt's family visited today. the pt reports her interactions with them always cause anxiety. regardless, she doesn't want to start treatment for anxiety Review of Systems Review of Systems: All systems reviewed & are unremarkable except as noted in HPI and below Exam Const: Other: anxious Eyes: Pupils: Equal, round and reactive pupils present Neck: Neck: supple Resp: Effort & Inspection: normal respiratory effort Auscultation: clear to auscultation bilaterally Cardio: Rate: regular rate Rhythm: regular rhythm Extrem: General: no edema Objective Data Vital Signs Vital Signs: Vital Signs - 24 hr 04/19/23 19:49 04/19/23 19:52 04/19/23 20:00 Temperature 97.6 F Pulse Rate 73 64 84 Respiratory Rate 20 Blood Pressure 152/59 H Pulse Oximetry 98 Oxygen Delivery 04/19/23 22:00 04/19/23 23:37 04/20/23 00:00 Temperature 97.7 F Pulse Rate 69 77 66 Respiratory Rate 16 Blood Pressure 144/53 H Pulse Oximetry 94 Oxygen Delivery 04/20/23 02:00 04/20/23 04:00 04/20/23 04:00 Temperature 97.1 F L Pulse Rate 65 67 70 Respiratory Rate 16 Blood Pressure 133/48 L Pulse Oximetry 94 Oxygen Delivery 04/20/23 06:00 04/20/23 08:16 04/20/23 08:00 Temperature 97.7 F Pulse Rate 80 95 92 Respiratory Rate 12 Blood Pressure 121/65 Pulse Oximetry 99 Oxygen Delivery 04/20/23 08:00 04/20/23 08:00 04/20/23 10:00 Temperature Pulse Rate 95 80 82 Respiratory Rate 12 Blood Pressure Pulse Oximetry 99 Oxygen Delivery Room Air 04/20/23 12:00 04/20/23 12:00 04/20/23 12:00 Temperature 97.6 F Pulse Rate 82 70 Respiratory Rate 16 Blood Pressure 136/50 L Pulse Oximetry 100 Oxygen Delivery Room Air 04/20/23 14:00 04/20/23 16:00 04/20/23 16:00 Temperature 97.7 F Pulse Rate 82 84 79 Respiratory Rate 20 Blood Pressure 100/64 Pulse Oximetry 100 Oxygen Delivery 04/20/23 16:00 Temperature Pulse Rate Respiratory Rate Blood Pressure Pulse Oximetry Oxygen Delivery Room Air Intake/Output Intake/Output: Intake & Output 04/17/23 04/18/23 04/19/23 04/20/23 23:59 23:59 23:59 23:59 Intake Total 240 1470 Output Total 700 700 Balance -460 770 Meds/Results Medications: Active Medications Generic Name Dose Route Start Last Admin Trade Name Freq PRN Reason Stop Dose Admin Acetaminophen 650 mg 04/18/23 22:06 Acetaminophen 325 Mg Tablet PO Q4H PRN Mild Pain (1-3) or Fever Aspirin 81 mg 04/19/23 08:00 04/20/23 08:16 Aspirin 81 Mg Chewable Tablet PO 81 mg DAILY@0800 ALEXANDER Administration Heparin Sodium (Porcine) 4,000 units 04/18/23 21:24 04/20/23 18:21 Heparin Sodium 5,000 Units/Ml Vial IV PUSH 4,000 units PRN PRN Administration aPTT less than 55 seconds Heparin Sodium (Porcine) 2,000 units 04/18/23 21:24 Heparin Sodium 5,000 Units/Ml Vial IV PUSH PRN PRN aPTT 55 - 70 seconds Heparin Sodium/Dextrose 25,000 units in 250 mls @ 8 mls/hr 04/18/23 21:25 04/20/23 18:21 Heparin Sodium/D5w 100 Units/Ml IV CONT 800 units/hr .Q24H ALEXANDER 8 mls/hr Titration Protocol 800 UNITS/HR Sodium Chloride 500 mls @ 100 mls/hr 04/21/23 12:00 Normal Saline Iv IV CONT .Q5H ALEXANDER Lorazepam 0.25 mg 04/19/23 14:46 04/20/23 08:16 Lorazepam (*Crx) 0.5 Mg Tablet PO 0.25 mg Q6H PRN Administration Anxiety Metoprolol Tartrate 25 mg 04/20/23 21:00 Metoprolol Tartrate 25 Mg Tablet PO Q12HR [facility] Morphine Sulfate 4 mg 04/18/23 22:06 Mo
[2023-04-20] MEDS: METOPROLOL TARTRATE 25 MG TABLET PO (20:01)
[2023-04-21] VITALS (43 sets, daily range): BP systolic 81–175; BP diastolic 48–107; PULSE 55–100; RESP 12–20; TEMP 35.7–36.6; O2SAT 94–100
[2023-04-21 01:17] LABS: Partial Thromboplastin Time > 200.0 SECONDS (22.3-36.8)
[2023-04-21] MEDS: LORazepam (*CRX) 0.5 MG TABLET 0.25 MG PO (06:28)
[2023-04-21 08:56] LABS: Hematocrit 36.9 % (37.0-47.0); Hemoglobin 11.8 g/dL (12.0-15.0); Mean Corpuscular Hemoglobin 28.8 pg (26-34); Mean Platelet Volume 10.2 fl (7.4-10.4); Platelet Count Result 333 k/mm3 (150-375); Red Cell Distribution Width 13.4 % (11.5-14.5); White Blood Count 8.9 K/mm3 (4.5-10.0)
[2023-04-21 09:07] LABS: Anion Gap 9 mmol/L (8-16); Blood Urea Nitrogen 18 mg/dL (7-17); Calcium 9.2 mg/dL (8.4-10.2); Carbon Dioxide 27 mmol/L (22-30); Chloride 102 mmol/L (98-107); Estimated CRCL calculation 44 ml/min; Estimated Glomerular Filt Rate > 60; Glucose 102 mg/dL (65-110); Potassium 4.1 mmol/L (3.4-5.0); Sodium 138 mmol/L (137-145)
[2023-04-21 09:08] LABS: Partial Thromboplastin Time 62.4 SECONDS (22.3-36.8)
[2023-04-21] MEDS: ASPIRIN 81 MG CHEWABLE TABLET PO (09:10)
[2023-04-21] MEDS: METOPROLOL TARTRATE 25 MG TABLET PO ×2 (09:11→20:37)
[2023-04-21] MEDS: ROSUVASTATIN 20 MG TABLET PO (09:12)
[2023-04-21] MEDS: HEPARIN SODIUM 5,000 UNITS/ML VIAL 2000 UNITS IV PUSH (09:28)
--- NOTE | 2023-04-21 13:41 | PM.IMPN ---
Progress Note: A&P Assessment and Plan (1) Acute non-ST elevation myocardial infarction (NSTEMI): Code(s): I21.4 - Non-ST elevation (NSTEMI) myocardial infarction Status: Acute Plan 72F w/ PMH anxiety, GERD, atherosclerosis of left carotid artery, RA, HTN, HLD, statin intolerance, TIA presented with chest pain for 3 weeks which was worse with anxiety. Admitted on 04/18 for NSTEMI 1) NSTEMI - cardiology consulted. she is currently chest pain free and trops are flat. cath today - mgmt per cardiology including heparin GTT, tele monitor, statin, metoprolol, SL NG, 2d echo read is pending, heart healthy diet, aspirin 2) HLD - previously intolerant to atorvastatin 2/2 myalgia. started rosuvastatin this admission without issue so far 3) hx HTN - ctm, adjust meds based on other problems 4) dry cough - stable. history of smoking. needs outpatient pulm f/u 5) anxiety - she does not want to take SSRI. she did not do well with 0.5 mg ativan but reports at a past date she took smallest dose 0.25mg so we switched to that. FEN: saline lock IV, NPO currently GI prophylaxis: none indicated DVT prophylaxis: heparin GTT Lines: PIV Code Status: Full Code Dispo: stable. pending cath on friday Subjective Date/time seen: 04/21/23 13:41 Interval history: NAOE. pt is anxious Review of Systems Review of Systems: All systems reviewed & are unremarkable except as noted in HPI and below Exam Const: General: comfortable and no acute distress Eyes: Pupils: Equal, round and reactive pupils present Neck: Neck: supple Resp: Effort & Inspection: normal respiratory effort Auscultation: clear to auscultation bilaterally Cardio: Rate: regular rate Rhythm: regular rhythm Heart sounds: no gallops, no murmurs and no rubs GI: GI Palp: Yes Soft to palpation Extrem: General: no edema Objective Data Vital Signs Vital Signs: Vital Signs - 24 hr 04/20/23 14:00 04/20/23 16:00 04/20/23 16:00 Temperature 97.7 F Pulse Rate 82 84 79 Respiratory Rate 20 Blood Pressure 100/64 Pulse Oximetry 100 Oxygen Delivery 04/20/23 16:00 04/20/23 20:01 04/20/23 20:40 Temperature 97.6 F Pulse Rate 64 64 Respiratory Rate 20 Blood Pressure 148/51 H Pulse Oximetry 97 Oxygen Delivery Room Air 04/20/23 20:00 04/20/23 22:00 04/20/23 23:02 Temperature 97.5 F L Pulse Rate 80 72 79 Respiratory Rate 20 Blood Pressure 149/56 H Pulse Oximetry 97 Oxygen Delivery 04/21/23 00:00 04/21/23 02:00 04/21/23 04:39 Temperature 97.7 F Pulse Rate 76 70 75 Respiratory Rate 20 Blood Pressure 134/61 Pulse Oximetry 96 Oxygen Delivery 04/21/23 04:00 04/21/23 06:00 04/21/23 07:38 Temperature 97.8 F Pulse Rate 63 82 73 Respiratory Rate 20 Blood Pressure 153/56 H Pulse Oximetry 98 Oxygen Delivery 04/21/23 09:11 04/21/23 08:00 04/21/23 08:00 Temperature Pulse Rate 76 77 Respiratory Rate Blood Pressure Pulse Oximetry Oxygen Delivery Room Air 04/21/23 10:00 04/21/23 11:39 Temperature 96.2 F L Pulse Rate 57 L 65 Respiratory Rate 16 Blood Pressure 160/53 H Pulse Oximetry 98 Oxygen Delivery Intake/Output Intake/Output: Intake & Output 04/18/23 04/19/23 04/20/23 04/21/23 23:59 23:59 23:59 23:59 Intake Total 240 1470 Output Total 700 1000 650 Balance -460 470 -650 Meds/Results Medications: Active Medications Generic Name Dose Route Start Last Admin Trade Name Freq PRN Reason Stop Dose Admin Acetaminophen 650 mg 04/18/23 22:06 Acetaminophen 325 Mg Tablet PO Q4H PRN Mild Pain (1-3) or Fever Aspirin 81 mg 04/19/23 08:00 04/21/23 09:10 Aspirin 81 Mg Chewable Tablet PO 81 mg DAILY@0800 ALEXANDER Administration Heparin Sodium (Porcine) 4,000 units 04/18/23 21:24 04/20/23 18:21 Heparin Sodium 5,000 Units/Ml Vial IV PUSH 4,000 units PRN PRN Administration aPTT less than 55 seconds Heparin
--- NOTE | 2023-04-21 14:07 | WPDMODSED ---
Moderate Sedation Note-Pt Data Patient Data Diagnosis: acute coronary syndrome Present Complaint: chest pain Procedure to be performed/Plan: left heart catheterization Allergies Allergy/AdvReac Type Severity Reaction Status Date / Time codeine Allergy Intermediate Unknown Verified 04/18/23 17:38 Sulfa (Sulfonamide Allergy Intermediate Rash Verified 04/18/23 17:38 Antibiotics) celecoxib [From Celebrex] AdvReac Mild Unknown Verified 04/18/23 17:38 ibuprofen AdvReac Mild Unknown Verified 04/18/23 17:38 pseudoephedrine AdvReac Mild Unknown Verified 04/18/23 17:38 [From Sudafed] Home Medications Medication Instructions Recorded Confirmed Type aspirin 81 mg tablet,delayed 81 mg PO DAILY 02/21/23 04/19/23 History release (Adult Low Dose Aspirin) lisinopril 5 mg tablet 5 mg PO DAILY #90 tabs 02/24/23 04/19/23 Rx lorazepam 0.5 mg tablet (Ativan) 0.5 mg PO BID PRN anxiety #60 tabs 02/24/23 04/19/23 Rx Current Medications: Active Medications Acetaminophen (Acetaminophen 325 Mg Tablet) 650 mg PO Q4H PRN PRN Reason: Mild Pain (1-3) or Fever Aspirin (Aspirin 81 Mg Chewable Tablet) 81 mg PO DAILY@0800 ALEXANDER Last Admin: 04/21/23 09:10 Dose: 81 mg Heparin Sodium (Porcine) (Heparin Sodium 5,000 Units/Ml Vial) 4,000 units IV PUSH PRN PRN PRN Reason: aPTT less than 55 seconds Last Admin: 04/20/23 18:21 Dose: 4,000 units Heparin Sodium (Porcine) (Heparin Sodium 5,000 Units/Ml Vial) 2,000 units IV PUSH PRN PRN PRN Reason: aPTT 55 - 70 seconds Last Admin: 04/21/23 09:28 Dose: 2,000 units Heparin Sodium/Dextrose (Heparin Sodium/D5w 100 Units/Ml) 25,000 units in 250 mls @ 7 mls/hr IV CONT .Q24H ALEXANDER; Protocol Last Admin: 04/21/23 09:55 Dose: Not Given Sodium Chloride (Normal Saline Iv) 500 mls @ 100 mls/hr IV CONT .Q5H ALEXANDER Lorazepam (Lorazepam (*Crx) 0.5 Mg Tablet) 0.25 mg PO Q6H PRN PRN Reason: Anxiety Last Admin: 04/21/23 06:28 Dose: 0.25 mg Metoprolol Tartrate (Metoprolol Tartrate 25 Mg Tablet) 25 mg PO Q12HR [facility] Last Admin: 04/21/23 09:11 Dose: 25 mg Morphine Sulfate (Morphine Sulfate (*Crx) 4 Mg/Ml Inj) 4 mg IV PUSH Q2H PRN PRN Reason: Pain Rated 7-10 Nitroglycerin (Nitroglycerin Sl 0.4 Mg Tablet) 0.4 mg SUBLINGUAL Q5MIN PRN PRN Reason: Chest Pain Perflutren Lipid Microsphere (Perflutren Lipid Microspheres 1.5 Ml Vial Diluted To 10 Ml Total Volume) 0 ml IV PUSH ONCE PRN; Protocol PRN Reason: adequate visualization Stop: 04/22/23 08:32 Rosuvastatin Calcium (Rosuvastatin 20 Mg Tablet) 20 mg PO QAM [facility] Last Admin: 04/21/23 09:12 Dose: 20 mg Sedation/Anesthesia: No previous sedation/anesthesia problems (including family history). [facility] Past Medical History Medical History (Updated 04/19/23 @ 12:03 by Marly Bernal MD) Anxiety Arthritis Atherosclerosis of left carotid artery Gastroesophageal reflux disease Headache HTN (hypertension) Hyperlipidemia Statin intolerance TIA (transient ischemic attack) Possible TIA or ocular migraine 12/2022. Apparently the evaluation was unremarkable. Started on aspirin and statin therapy. Vision problems Surgical History Surgical History History of hysterectomy (~1978) Family History Family History (Updated 04/19/23 @ 01:23 by Cecilia Chi RN) Father Heart disease Mother Hypertension Grandparent Heart disease Chronic obstructive pulmonary disease Grandparent Hypertension Cerebrovascular accident Social History Social History Smoking status: Never smoker Second hand tobacco smoke exposure: No Alcohol intake: never Alcohol use details: very rarely Substance use: never Substance use type: does not use Lack of Transportation: No Lack of Food: Never True Current Housing: I Have Housing Concerned About Future Housing: No Difficulty Paying Gas/Electric Bills: No Difficulty
--- NOTE | 2023-04-21 14:30 | PC.NURSE ---
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 No distress noted.
--- NOTE | 2023-04-21 15:44 | ECG_ITS ---
Measurements Intervals [place] Rate: 70 P: 70 AR: 158 QRS: 6 QRSD: 85 T: 48 QT: 365 QTc: 394 Interpretive Statements SINUS RHYTHM CANNOT RULE OUT SEPTAL INFARCT, AGE INDETERMINATE BORDERLINE ST-T WAVE ABNORMALITY- ANT/INF LEADS BASELINE ARTIFACT- I, II, III, AVR, AVL, AVF, V1, V3-V6 ABNORMAL ECG COMPARED TO ECG 04/19/2023 10:05:12 NO SIGNIFICANT CHANGES Electronically Signed On 04-21-2023 19:32:46 [employer] by Steven Coats D.O.
--- NOTE | 2023-04-21 15:48 | WPDCARDPROC ---
Cardiac Cath Procedure Note Date of procedure:: 04/21/23 Performing physician:: Александр Oconnell MD Indication:: acute coronary syndrome Brief clinical history:: this is a 72-year-old woman with history of hypertension, rheumatoid arthritis and previous history of smoking. She entered the hospital with chest pain and very modest troponin rise and was given the diagnosis of acute coronary syndrome. Catheterization was recommended in that setting. Procedure Procedure performed:: Left ventriculogram coronary angiography PCI(HELEN) to the distal right coronary artery Sedation/Medication given:: fentanyl 50 mg Versed 3 mg case start time 2:54 p.m. sedation provided by Larry García RN trained observer Access site:: right femoral artery Estimated blood loss:: 25 cc Procedure note:: patient was brought to the cardiac catheterization lab in the postabsorptive state with the right femoral triangle was prepared and draped in the usual fashion. Anesthesia was provided with 1% lidocaine infiltrated locally. Using the modified Seldinger technique a 5 Ethiopian sheath was placed into the femoral artery. After this I used a 5 Ethiopian angled pigtail catheter to measure left-sided hemodynamics and to inject left ventriculogram in the 30 degree [place] projection. Following this I used standard 5 Ethiopian FL4 catheter to engage and inject the left coronary artery and then a 5 Ethiopian JR4 catheter to engage and inject the right coronary artery. The cineangiograms were reviewed following this PCI of the distal right coronary artery was recommended and carried out as detailed below. Prior to intervention the 5 Ethiopian sheath was exchanged over the guidewire for a 6 Ethiopian sheath. The patient received 600 mg of oral clopidogrel and then bolus and infusion of bivalirudin for this PCI. The procedure was well tolerated uncomplicated following the intervention the sheath was sutured in position she was taken back to the holding area for post PCI recovery. Findings:: Hemodynamics: The central aortic pressure was 170 over 56 left ventricle 170/0 end-diastolic of 10 there is no gradient on pullback across the aortic valve. Left ventricle: The left ventricle is normal in size all segments appear to contract adequately the global ejection fraction is 60% there were no apparent regional wall motion abnormalities. The left main coronary artery is medium in caliber and is patent. There is some calcific disease noted in the root of the aorta adjacent to the origin of both the left and right coronary arteries. The left anterior descending is a medium caliber artery proximally is patent without any significant disease. After it gives rise to the major diagonal branch the remainder of the LAD is anatomically quite small and diffusely attenuated in appearance but there are no atherosclerotic lesions of significance identified. The circumflex is a medium caliber artery giving rise to the marginal branches. The circumflex system is smooth and angiographically free of disease. The right coronary artery is large in caliber dominant to the posterior circulation. The RCA has a proximal patel's crook deformity where there is about 50% atherosclerotic stenosis as well. The trunk of the right coronary has a very high-grade 99% stenosis that is discrete in the 3rd portion of the RCA. The RPDA and RPL branches are free of significant disease. Intervention: The right coronary was engaged using a 6 Ethiopian JR4 catheter. I used a 0.014 BMW wire to traverse the high-grade distal stenosis the wire was advanced out into the RPDA. This target lesion was then pre-dilated using a 3 x 15 mm Jean-Paul balloon which resolved the stenosis with about 30% residual. I then deployed the 4 x 18 mm Phone Warrior stent to the target lesion this was deployed at 14 atmospheres with an excellent angiographic result and no residual stenosis disruption dissection or distal
[2023-04-21] MEDS: SODIUM CHLORIDE 0.9% IV 1,000 ML 125 ML IV CONT (17:20)
[2023-04-21] MEDS: MORPHINE SULFATE (*CRX) 4 MG/ML INJ IV PUSH (19:50)
[2023-04-22] VITALS (11 sets, daily range): BP systolic 102–152; BP diastolic 42–85; PULSE 57–84; RESP 12–20; TEMP 36.4–36.8; O2SAT 93–99
[2023-04-22 04:34] LABS: Hematocrit 34.5 % (37.0-47.0); Hemoglobin 10.7 g/dL (12.0-15.0); Mean Corpuscular Hemoglobin 28.4 pg (26-34); Mean Corpuscular Volume 91.5 fl (80-100); Mean Platelet Volume 9.4 fl (7.4-10.4); Platelet Count Result 316 k/mm3 (150-375); Red Blood Count 3.77 M/mm3 (4.2-5.4); Red Cell Distribution Width 13.4 % (11.5-14.5); White Blood Count 8.1 K/mm3 (4.5-10.0)
[2023-04-22 04:49] LABS: Anion Gap 8 mmol/L (8-16); Blood Urea Nitrogen 11 mg/dL (7-17); Calcium 9.2 mg/dL (8.4-10.2); Carbon Dioxide 26 mmol/L (22-30); Chloride 103 mmol/L (98-107); Estimated CRCL calculation 44 ml/min; Estimated Glomerular Filt Rate > 60; Glucose 96 mg/dL (65-110); Potassium 4.7 mmol/L (3.4-5.0); Sodium 137 mmol/L (137-145)
--- NOTE | 2023-04-22 05:11 | ECG_ITS ---
Measurements Intervals [place] Rate: 76 P: 71 WI: 137 QRS: -4 QRSD: 88 T: 35 QT: 329 QTc: 372 Interpretive Statements SINUS RHYTHM CANNOT RULE OUT SEPTAL INFARCT, AGE INDETERMINATE BASELINE ARTIFACT- I, II, III, AVR, AVL, AVF, V3-V6 ABNORMAL ECG COMPARED TO ECG 04/21/2023 19:12:26 NO SIGNIFICANT CHANGES Electronically Signed On 04-22-2023 9:43:02 [employer] by Steven Coats D.O.
[2023-04-22] MEDS: CLOPIDOGREL BISULFATE 75 MG TABLET PO (09:21)
[2023-04-22] MEDS: LOSARTAN POTASSIUM 25 MG TABLET PO (09:21)
[2023-04-22] MEDS: ASPIRIN 81 MG CHEWABLE TABLET PO (09:21)
[2023-04-22] MEDS: ROSUVASTATIN 20 MG TABLET PO (09:21)
[2023-04-22] MEDS: METOPROLOL TARTRATE 25 MG TABLET PO (09:22)
--- NOTE | 2023-04-22 10:16 | PM.PNCARD ---
Progress Note: A&P Assessment and Plan (1) Acute non-ST elevation myocardial infarction (NSTEMI): Code(s): I21.4 - Non-ST elevation (NSTEMI) myocardial infarction Status: Acute Assessment and Plan: Underwent successful PCI with HELEN x 1 to the RCA on 04/[address] Oconnell. Doing well post PCI. Patient to be on: ASA 81mg once daily indefinitely Plavix 75mg once daily for at least 1 year. I had a lengthy discussion with the patient this morning regarding need for compliance to DAPT and the risks of stent thrombosis and consequences of stent thrombosis. Patient expressed understanding. High intensity statin Beta dorothy. Losartan Referral to cardiac rehab placed. Okay to discharge home from a cardiac standpoint. Will arrange outpatient follow up in our office. Subjective Date/time seen: 04/22/23 10:16 Interval history: Follow-up for non-STEMI. Admitted 04/19/2023. History of some statin intolerance, TIA in December 2022, hyperlipidemia, hypertension, rheumatoid arthritis, former tobacco use, anxiety. 04/19/2023 started heparin, aspirin, rosuvastatin, metoprolol. Date of service 04/20/2023: Family at bedside. Had some chest discomfort when up to BR tangled in IV lines (resolved after getting back to bed, unhappy w/ q 6H PTT, extremely anxious re: her cardiac condition and tmr's procedure, unhappy that it likely won't be done until afternoon. Remains on room air, heart rate 80-90s, blood pressure systolic 120-150 mmHg. Echo showed overall good EF but inferior hypokinesis. Date of service 04/22: Underwent PCI yesterday with Dr. Oconnell. Doing well this morning. No chest pain. Review of Systems Review of Systems: No chest pain, shortness of breath. Exam Const: General: comfortable and no acute distress HENMT: Mouth: Yes moist mucous membranes Eyes: General: appearance normal, both eyes and all related structures Sclera: sclerae normal Neck: Neck: supple Resp: Effort & Inspection: normal respiratory effort Cardio: Rate: regular rate Rhythm: regular rhythm Skin: General skin exam: normal color Neuro: Speech: normal speech Psych: Mental Status: mental status grossly normal Affect: normal affect Objective Data Vital Signs Vital Signs: Vital Signs - 24 hr 04/21/23 11:39 04/21/23 12:00 04/21/23 12:00 Temperature 35.7 C L Pulse Rate 65 68 Pulse Rate [Bilateral Pedal (Dorsalis Pedis)] Pulse Rate [Right Pedal (Dorsalis Pedis) Palpation] Respiratory Rate 16 Blood Pressure 160/53 H Pulse Oximetry 98 Oxygen Delivery Room Air 04/21/23 14:00 04/21/23 15:53 04/21/23 16:00 Temperature Pulse Rate 59 L 73 69 Pulse Rate [Bilateral Pedal (Dorsalis Pedis)] Pulse Rate [Right Pedal (Dorsalis Pedis) Palpation] Respiratory Rate 16 16 Blood Pressure 137/67 Pulse Oximetry 97 96 Oxygen Delivery 04/21/23 16:15 04/21/23 16:30 04/21/23 16:45 Temperature Pulse Rate 64 66 75 Pulse Rate [Bilateral Pedal (Dorsalis Pedis)] Pulse Rate [Right Pedal (Dorsalis Pedis) Palpation] Respiratory Rate 16 13 15 Blood Pressure 158/107 H 173/61 H 175/62 H Pulse Oximetry 97 98 100 Oxygen Delivery 04/21/23 17:00 04/21/23 17:15 04/21/23 18:15 Temperature Pulse Rate 64 71 64 Pulse Rate [Bilateral Pedal (Dorsalis Pedis)] Pulse Rate [Right Pedal (Dorsalis Pedis) Palpation] Respiratory Rate 19 18 16 Blood Pressure 165/66 H 160/68 H 159/69 H Pulse Oximetry 96 98 97 Oxygen Delivery Room Air Room Air 04/21/23 19:15 04/21/23 17:30 04/21/23 17:45 Temperature Pulse Rate 70 72 65 Pulse Rate [Bilateral Pedal (Dorsalis Pedis)] Pulse Rate [Right Pedal (Dorsalis Pedis) Palpation] Respiratory Rate 18 17 16 Blood Pressure 150/79 H 143/76 H 144/65 H Pulse Oximetry 98 98 98 Oxygen Delivery Room Air Room Air Room Air 04/21/23 18:00 04/21/23 18:30 04/21/23 18:45 Temperature Pulse Rate 74 69 69 Pulse Rate [Bilateral Pedal (Dorsalis
--- NOTE | 2023-04-22 14:37 | PM.DS ---
DS: Admitting Diagnosis Discharge Date 04/22/2023: Admitting Diagnosis chest pain/ non ST elevated [place] DS: Discharge Diagnosis Discharge Diagnosis (1) Acute non-ST elevation myocardial infarction (NSTEMI): Code(s): I21.4 - Non-ST elevation (NSTEMI) myocardial infarction Status: Acute (2) Hyperlipidemia: Code(s): E78.5 - Hyperlipidemia, unspecified Status: Acute (3) Tobacco dependence: Code(s): F17.200 - Nicotine dependence, unspecified, uncomplicated Status: Acute (4) Rheumatoid arthritis: Code(s): M06.9 - Rheumatoid arthritis, unspecified Status: Acute (5) ASHVIN (iron deficiency anemia): Code(s): D50.9 - Iron deficiency anemia, unspecified Status: Acute (6) Anxiety: Code(s): F41.9 - Anxiety disorder, unspecified Status: Acute (7) Arthritis: Code(s): M19.90 - Unspecified osteoarthritis, unspecified site Status: Acute (8) Gastroesophageal reflux disease: Code(s): K21.9 - Gastro-esophageal reflux disease without esophagitis Status: Acute (9) HTN (hypertension): Code(s): I10 - Essential (primary) hypertension Status: Acute DS: Summary Hospital Course Reason for hospitalization: patient admitted with chest pain. Workup showed non ST elevated [place] Hospital Course: H&P: HPI History of Present Illness Date/Time: 04/18/23? 21:17 Chief Complaint: Chest pain Narrative: 72-year-old female with past medical history significant for tobacco dependence, RA, hypertension, care.? Patient presents to the emergency room due to chest pain localized to the precordial area with radiation to neck and bilateral shoulder rates the pain at 7/10 in intensity denies any nausea vomiting palpitations lightheadedness dizziness syncope or near syncope no cough no sputum production no leg swelling.? Preliminary workup was significant for elevated troponin.? Patient has been placed on heparin drip.? Admitted to in IMU. Hospital course 04/18/2023 - 04/22/2023: Patient started on IV heparin drip, seen and evaluated by Cardiology, and underwent successful PCI with HELEN x1 stent placement to the RCA on 04/21/2023. Postop she is doing well. Patient seen and evaluated by Cardiology today and cleared for discharge on aspirin, Plavix, high-intensity statin and beta-dorothy. Advised patient follow-up closely with her PCP as outpatient.. She is advised to follow-up closely with her manager architecture as per their recommendation Time spent discussing smoking cessation with patient: 3 to 10 minutes Status at Discharge Overall status at discharge: patient is progressing back to baseline Time Spent with Patient Time attestation: Total time spent providing and/or coordinating discharge services: Time spent: Greater than 30 minutes Exam Narrative: PHYSICAL EXAMINATION: Vital signs: Please see the chart General physical exam: patient lying in bed during my morning home, chest pain has improved, she wants to go home Head/eyes: Atraumatic, EOMI, PERRLA ENT: Moist mucous membranes, nasal passages clear Neck: Supple, full range of motion, trachea midline CVS: S1 + S2, regular rate and rhythm, no murmurs Respiratory: Bilaterally fair air entry in both lung parikh, mild B/L crackles, symmetric chest expansion, no distress Abdomen: Soft, non-tender, bowel sounds +ve, no organomegaly Extremities: No clubbing, no cyanosis, no edema, no calf tenderness Musculoskeletal: Moves all, adequate range of motion, no muscle spasms Skin: Warm, dry, no jaundice, no cyanosis Neurological: Awake, alert, oriented x 3, cranial nerves II-XII intact, no focal neurological deficits Psychiatric: Normal mood, non suicidal DS: Data Data Completed and Pending Labs on day of discharge: Labs from last 24 hours 04/22/23 04:24 WBC 8.1 RBC 3.77 L Hgb 10.7 L Hct 34.5 L MCV 91.5 MCH 28.4 MCHC 31.0 L RDW 13.4 Plt Count 316 MPV 9.4 Sodium 137 Po
== END 2023-04-22 15:00 | disposition home or self-care (01) | DRG 229 ==
LOC: ANHED 22:04 → ANHIMU 04-19 00:36 → ANHICU 04-21 17:25
PROVIDERS: General Practice; Internal Medicine Cardiovascular Disease; Specialist; Admitting Provider Internal Medicine; Emergency Provider Emergency Medicine; PCP Family Medicine; Visit Provider Family Medicine
PROC: 4A023N7 Measurement of Cardiac Sampling and Pressure, Left Heart, Percutaneous Approach (ICD-10-PCS; CPT 93452; principal; 2023-04-21 13:00)
PROC: 027004Z Dilation of Coronary Artery, One Artery with Drug-eluting Intraluminal Device, Open Approach (ICD-10-PCS; 2023-04-21 13:00)
DX: I21.4 Non-ST elevation (NSTEMI) myocardial infarction (principal); E78.5 Hyperlipidemia, unspecified; M06.9 Rheumatoid arthritis, unspecified; D50.9 Iron deficiency anemia, unspecified; F41.9 Anxiety disorder, unspecified; K21.9 Gastro-esophageal reflux disease without esophagitis; M19.90 Unspecified osteoarthritis, unspecified site; I10 Essential (primary) hypertension; J44.9 Chronic obstructive pulmonary disease, unspecified; T50.905A Adverse effect of unspecified drugs, medicaments and biological substances, initial encounter; I65.22 Occlusion and stenosis of left carotid artery; Z20.822 Contact with and (suspected) exposure to COVID-19; Z79.82 Long term (current) use of aspirin; Z86.73 Personal history of transient ischemic attack (TIA), and cerebral infarction without residual deficits
CPT/HCPCS: 36415; 71046; 80048; 80053; 83690; 84484; 85025; 85027; 85610; 85730; 87637; 93005; 93306; 93458; 96374; 96375; 99291; A9270; C1725; C1769; C1874; C1887; C1894; C9600; J0461; J0583; J1644; J2060; J2250; J2270; J2305; J3010; J7030; J7040; L1830

== ENCOUNTER 2023-08-07 11:25 | Emergency (ER) | payer MEDICARE, SELFPAY ==
[2023-08-07 11:30] VITALS: BP 182/53; PULSE 80; RESP 16; TEMP 36.6; O2SAT 100
--- NOTE | 2023-08-07 13:00 | ED.EAR ---
HPI - Ear Problem General Chief complaint: Ear Stated complaint: R EAR HEARING PROBLEM Time Seen by Provider: 08/07/23 12:58 Source: patient Mode of arrival: ambulatory Limitations: no limitations History of Present Illness HPI Narrative: Patient presents with concern for right hearing problems. Notes that it sounds muffled , like factory noise. Started to notice it around 10pm yesterday. Initially denies any ringing in her ears but then states when she puts her finger in her ear she hears a metallic tinny noise. She says this happened 5 years ago and only lasted a few hours. Denies recurrent ear infections notes that she had think is a had 1 as a pediatric patient and one as an adult that she recalls. No new medications including no antibiotics. Only new item in her life is drinking apple juice and she does wonder this could be related. No ear pain. She did recently have a cough and congestion 2 weeks ago. Does take an 81mg aspirin but denies any use of other salicillates/over the counter meds. States she is allergic to a lot of fillers in certain medications including [employer] She is concerned since she had an issue with her right eye in December 2022 which was later diagnosed as possibly a TIA versus migraine. No sequela and she has regained vision. She also had an GA in May 2023 for which she has 1 stent. Because of her concern and issues with her kids she took 1/2 an Ativan prior to arrival. She denies any vision changes or slurred speech or motor/sensory deficits. Related Data Home Medications Medication Instructions Recorded Confirmed aspirin 81 mg tablet,delayed 81 mg PO DAILY 02/21/23 07/07/23 release (Adult Low Dose Aspirin) Allergies Allergy/AdvReac Type Severity Reaction Status Date / Time codeine Allergy Intermediate Unknown Verified 07/07/23 10:07 Sulfa (Sulfonamide Allergy Intermediate Rash Verified 07/07/23 10:07 Antibiotics) celecoxib [From Celebrex] AdvReac Mild Unknown Verified 07/07/23 10:07 ibuprofen AdvReac Mild Unknown Verified 07/07/23 10:07 pseudoephedrine AdvReac Mild Unknown Verified 07/07/23 10:07 [From Sudafed] FORMERLY [facility], [facility] Past Medical History Medical History Anxiety Arthritis Atherosclerosis of left carotid artery Gastroesophageal reflux disease Headache HTN (hypertension) Hx of non-ST elevation myocardial infarction (NSTEMI) May 2023 Hx-TIA (transient ischemic attack) Hyperlipidemia Statin intolerance TIA (transient ischemic attack) Possible TIA or ocular migraine 12/2022. Apparently the evaluation was unremarkable. Started on aspirin and statin therapy. Vision problems Surgical History Surgical History History of heart artery stent May 2023 History of hysterectomy (~1978) Family History Family History Father Heart disease Mother Hypertension Grandparent Heart disease Chronic obstructive pulmonary disease Grandparent Hypertension Cerebrovascular accident Social History Social History Smoking status: Never smoker Second hand tobacco smoke exposure: No Alcohol intake: never Alcohol use details: very rarely Substance use: never Substance use type: does not use Lack of Transportation: No Lack of Food: Never True Current Housing: I Have Housing Concerned About Future Housing: No Difficulty Paying Gas/Electric Bills: No Difficulty Paying for Meds: No Currently Unemployed: No Education: Associate Degree Difficulty w/ Childcare or Family Care: No Living arrangements: alone Occupation/Education: retired Spiritual care concerns: No Agree to blood products: Yes Exam Narrative: GENERAL: Well-appearing, well-nourished, and in no acute distress. HEAD: Normoceph
[2023-08-07 13:56] LABS: Influenza A QL RT-PCR Negative (Negative); Influenza B QL RT-PCR Negative (Negative); RSV RNA, RT-PCR Negative (Negative); SARS-CoV-2 RNA PCR Negative (Negative)
[2023-08-07 14:24] LABS: Basophils Percent Auto 0.4 % (0.2-1.2); Eosinophils Absolute Auto 0.1 K/mm3 (0-0.3); Eosinophils Percent Auto 0.7 % (0-4.4); Hematocrit 37.9 % (37.0-47.0); Hemoglobin 11.7 g/dL (12.0-15.0); Immature Granulocyte Absolute 0.03 K/mm3 (0.00-0.031); Immature Granulocyte Percent A 0.4 % (0-0.5); Lymphocytes Absolute Auto 1.38 K/mm3 (0.9-3.2); Lymphocytes Percent Auto 19.2 % (18.3-44.2); Mean Corpuscular HGB Conc 30.9 g/dl (32-36); Mean Corpuscular Hemoglobin 26.8 pg (26-34); Mean Corpuscular Volume 86.7 fl (80-100); Mean Platelet Volume 10.4 fl (7.4-10.4); Monocytes Absolute Auto 0.4 K/mm3 (0.1-0.6); Monocytes Percent Auto 6.1 % (2.6-8.5); Neutrophils Absolute Auto 5.2 K/mm3 (1.3-6.7); Neutrophils Percent Auto 73.2 % (45.5-73.1); Platelet Count Result 363 k/mm3 (150-375); Red Blood Count 4.37 M/mm3 (4.2-5.4); Red Cell Distribution Width 12.8 % (11.5-14.5); White Blood Count 7.2 K/mm3 (4.5-10.0)
[2023-08-07 14:26] LABS: Anion Gap 6 mmol/L (8-16); Blood Urea Nitrogen 23 mg/dL (7-17); Calcium 10.1 mg/dL (8.4-10.2); Carbon Dioxide 30 mmol/L (22-30); Chloride 100 mmol/L (98-107); Estimated CRCL calculation 39 ml/min; Estimated Glomerular Filt Rate > 60; Glucose 109 mg/dL (65-110); Potassium 4.7 mmol/L (3.4-5.0); Sodium 136 mmol/L (137-145)
[2023-08-07 14:33] LABS: Salicylate < 1.0 mg/dL (2-20)
[2023-08-07] MEDS: OXYMETAZOLINE HCL 0.05% NAS 15 ML BTL (*BKC) 1 SPRAY NASAL (15:35)
== END 2023-08-07 15:38 | disposition home or self-care (01) ==
PROVIDERS: Emergency Provider Student in an Organized Health Care Education/Training Program; PCP Family Medicine
DX: H91.91 Unspecified hearing loss, right ear (principal); I25.2 Old myocardial infarction; I10 Essential (primary) hypertension; E78.5 Hyperlipidemia, unspecified; Z86.73 Personal history of transient ischemic attack (TIA), and cerebral infarction without residual deficits; Z20.822 Contact with and (suspected) exposure to COVID-19; Z79.82 Long term (current) use of aspirin; Z79.899 Other long term (current) drug therapy
CPT/HCPCS: 36415; 80048; 80307; 85025; 87637; 99283; A9270

== ENCOUNTER 2023-09-07 19:02 | Emergency (ER) | payer MEDICARE, SELFPAY ==
[2023-09-07 19:11] VITALS: BP 162/88; PULSE 82; RESP 16; TEMP 36.8; O2SAT 100
[2023-09-07] MEDS: LORazepam (*CRX) 0.5 MG TABLET PO (20:10)
--- NOTE | 2023-09-07 20:13 | ED.GENADULT ---
HPI - General Adult General Chief complaint: Unspecified Stated complaint: legs feeling funny, light headed Time Seen by Provider: 09/07/23 19:35 History of Present Illness HPI narrative: patient is a 72-year-old female who presents ER with multiple complaints. Main complaint is that she is feeling some tingling left leg. She has been feeling some crawling going down that leg over last couple weeks. Tonight she tensed up and felt increase tingling bony any. No focal weakness. No driving legs. No slurred speech or arm weakness. The patient was in getting into the patient bed and fell to she had pain going down from her buttock to her leg the also had some tingling with it. She has RA. No overt trauma to the back. Has saddle anesthesia. No difficulty with urination / defecation. Patient reports some body aches and starting a statin after having heart attack. Patient has also been having issues with vertigo recently has been on meclizine. Patient felt slightly dizzy when she tensed up earlier as well. Patient reports moderate anxiety but has not taken her anxiety medication tonight. Related Data Home Medications Medication Instructions Recorded Confirmed aspirin 81 mg tablet,delayed 81 mg PO DAILY 02/21/23 09/02/23 release (Adult Low Dose Aspirin) Allergies Allergy/AdvReac Type Severity Reaction Status Date / Time codeine Allergy Intermediate Unknown Verified 09/07/23 19:34 Sulfa (Sulfonamide Allergy Intermediate Rash Verified 09/07/23 19:34 Antibiotics) celecoxib [From Celebrex] AdvReac Mild Unknown Verified 09/07/23 19:34 ibuprofen AdvReac Mild Unknown Verified 09/07/23 19:34 pseudoephedrine AdvReac Mild Unknown Verified 09/07/23 19:34 [From Sudafed] Review of Systems Review of Systems: All systems reviewed & are unremarkable except as noted in HPI and below Constitutional: Constitutional: Reports no additional constitutional complaints ENT: Reports system reviewed and no additional complaints, except as documented Cardiovascular: Cardiovascular: Reports no additional cardiovascular complaints Respiratory: Respiratory: Reports no additional respiratory complaints Musculoskeletal: Musculoskeletal: Denies arthralgias, Denies joint swelling and Reports tingling PMFSH Past Medical History Medical History Anxiety Arthritis Atherosclerosis of left carotid artery Gastroesophageal reflux disease Headache HTN (hypertension) Hx of non-ST elevation myocardial infarction (NSTEMI) May 2023 Hx-TIA (transient ischemic attack) Hyperlipidemia Statin intolerance TIA (transient ischemic attack) Possible TIA or ocular migraine 12/2022. Apparently the evaluation was unremarkable. Started on aspirin and statin therapy. Vision problems Surgical History Surgical History History of heart artery stent May 2023 History of hysterectomy (~1978) Family History Family History Father Heart disease Mother Hypertension Grandparent Heart disease Chronic obstructive pulmonary disease Grandparent Hypertension Cerebrovascular accident Social History Social History Smoking status: Never smoker Second hand tobacco smoke exposure: No Alcohol intake: never Alcohol use details: very rarely Substance use: never Substance use type: does not use Lack of Transportation: No Lack of Food: Never True Current Housing: I Have Housing Concerned About Future Housing: No Difficulty Paying Gas/Electric Bills: No Difficulty Paying for Meds: No Currently Unemployed: No Education: Associate Degree Difficulty w/ Childcare or Family Care: No Living arrangements: alone Occupation/Education: retired Spiritual care concerns: No Agree to blood products: Yes
[2023-09-07 20:15] LABS: Basophils Percent Auto 0.5 % (0.2-1.2); Eosinophils Absolute Auto 0.2 K/mm3 (0-0.3); Eosinophils Percent Auto 2.5 % (0-4.4); Hematocrit 34.5 % (37.0-47.0); Hemoglobin 10.8 g/dL (12.0-15.0); Immature Granulocyte Absolute 0.01 K/mm3 (0.00-0.031); Immature Granulocyte Percent A 0.1 % (0-0.5); Lymphocytes Absolute Auto 1.41 K/mm3 (0.9-3.2); Mean Corpuscular HGB Conc 31.3 g/dl (32-36); Mean Corpuscular Hemoglobin 26.9 pg (26-34); Mean Corpuscular Volume 85.8 fl (80-100); Monocytes Absolute Auto 0.8 K/mm3 (0.1-0.6); Monocytes Percent Auto 10.2 % (2.6-8.5); Neutrophils Absolute Auto 5.4 K/mm3 (1.3-6.7); Neutrophils Percent Auto 68.7 % (45.5-73.1); Platelet Count Result 324 k/mm3 (150-375); Red Blood Count 4.02 M/mm3 (4.2-5.4); Red Cell Distribution Width 14.2 % (11.5-14.5); White Blood Count 7.9 K/mm3 (4.5-10.0)
[2023-09-07 20:26] LABS: Alanine Aminotransferase 20 U/L (6-35); Albumin Level 4.3 g/dL (3.5-5.1); Alkaline Phosphatase 61 U/L (38-126); Anion Gap 8 mmol/L (4-12); Aspartate Amino Transferase 38 U/L (14-36); Bilirubin,Total 0.3 mg/dL (0.2-1.3); Blood Urea Nitrogen 25 mg/dL (7-17); Calcium 9.5 mg/dL (8.4-10.2); Carbon Dioxide 24 mmol/L (22-30); Chloride 105 mmol/L (98-107); Creatine Kinase 132 U/L (30-135); Estimated CRCL calculation 26 ml/min; Estimated Glomerular Filt Rate 44; Glucose 109 mg/dL (65-110); Potassium 3.9 mmol/L (3.4-5.0); Sodium 137 mmol/L (137-145)
[2023-09-07 20:42] VITALS: BP 178/73; PULSE 80; RESP 20; TEMP 37.1; O2SAT 100
== END 2023-09-07 20:55 | disposition home or self-care (01) ==
PROVIDERS: Emergency Provider Emergency Medicine
DX: M54.32 Sciatica, left side (principal); F41.9 Anxiety disorder, unspecified; I65.22 Occlusion and stenosis of left carotid artery; I10 Essential (primary) hypertension; I25.2 Old myocardial infarction; E78.5 Hyperlipidemia, unspecified; K21.9 Gastro-esophageal reflux disease without esophagitis; M06.9 Rheumatoid arthritis, unspecified; M19.90 Unspecified osteoarthritis, unspecified site; Z95.5 Presence of coronary angioplasty implant and graft; Z86.73 Personal history of transient ischemic attack (TIA), and cerebral infarction without residual deficits; Z79.82 Long term (current) use of aspirin
CPT/HCPCS: 36415; 80053; 82550; 85025; 99283; A9270